=== PATIENT | male | born 1940 | race Caucasian/White ===

== ENCOUNTER 2019-11-02 08:17 | Outpatient (CLI) | payer MEDICARE | END 2019-11-02 23:59 | disposition home or self-care (01) | LOC: CFH 08:17 | PROVIDERS: ATTEND Nurse Practitioner | DX: Z12.2 Encounter for screening for malignant neoplasm of respiratory organs (principal); F17.210 Nicotine dependence, cigarettes, uncomplicated; I25.10 Atherosclerotic heart disease of native coronary artery without angina pectoris | CPT/HCPCS: G0297 ==

== ENCOUNTER → 2020-09-27 | Outpatient (CLI) | payer MEDICARE ==
[~2020-09-27] MED LIST: OMNIPAQUE 350 MG/ML, 100ML BOTTLE ONE
== END | disposition home or self-care (01) ==
LOC: RAD 13:50
PROVIDERS: ATTEND Internal Medicine Gastroenterology
DX: C16.9 Malignant neoplasm of stomach, unspecified (principal); I71.9 Aortic aneurysm of unspecified site, without rupture; D53.9 Nutritional anemia, unspecified; N28.1 Cyst of kidney, acquired; D37.1 Neoplasm of uncertain behavior of stomach; K92.2 Gastrointestinal hemorrhage, unspecified; R85.89 Other abnormal findings in specimens from digestive organs and abdominal cavity; K31.89 Other diseases of stomach and duodenum; K20.80 Other esophagitis without bleeding; K63.5 Polyp of colon; K31.7 Polyp of stomach and duodenum; K76.89 Other specified diseases of liver; K76.0 Fatty (change of) liver, not elsewhere classified; Z90.49 Acquired absence of other specified parts of digestive tract
CPT/HCPCS: 74177; Q9967

== ENCOUNTER 2020-10-17 06:03 | Day surgery (SDC) | payer MEDICARE ==
[~2020-10-17] VITALS: Ht 180.3 cm; Wt 78.1 kg
[2020-10-17 06:42] VITALS: BP 131/73
[2020-10-17] MEDS ORDERED: AMLO-210 PO (06:50)
[2020-10-17] MEDS ORDERED: HYDR12.517 PO (06:50)
[2020-10-17] MEDS ORDERED: PRAV40TA2 PO (06:50)
[2020-10-17] MEDS ORDERED: PANT40TA6 PO (06:50)
[2020-10-17] MEDS ORDERED: FAMO40TA4 PO (06:50)
[2020-10-17] MEDS ORDERED: CHLORHEXIDINE 15 ML UDC PO ONE (07:00)
[2020-10-17] MEDS ORDERED: LACTATED RINGERS 1,000 ML IV SCH (07:00)
[2020-10-17 07:35] LABS: ALBUMIN 3.6 g/dL (3.4-5.0); ANION GAP 5 mmol/L (5-15); CALCIUM 8.5 mg/dL (8.5-10.1); CHLORIDE 111 mmol/L (98-107)
[2020-10-17 07:39] LABS: ALANINE AMINOTRANSFERASE 18 U/L (12-78); ALKALINE PHOSPHATASE 74 U/L (45-117); BILIRUBIN,TOTAL 0.4 mg/dL (0.2-1.0); CREATININE 1.28 mg/dL (0.7-1.3); TOTAL PROTEIN 6.8 g/dL (6.4-8.2)
[2020-10-17] MEDS ORDERED: PROPOFOL 10 MG/ML, 20ML ONE (07:49)
[2020-10-17] MEDS ORDERED: PROPOFOL 50 ML ONE (07:49)
[2020-10-17] MEDS ORDERED: ONDANSETRON 2MG/ML, 2ML IVPush PRN (08:30)
[2020-10-17] MEDS ORDERED: PROMETHAZINE 25 MG/ML, 1ML IVPush PRN (08:30)
[2020-10-17] MEDS ORDERED: DIPHENHYDRAMINE 50 MG/ML, 1ML IVPush PRN (08:30)
[2020-10-17] MEDS ORDERED: hydrALAzine 20 MG/ML, 1ML IV PRN (08:30)
[2020-10-17] MEDS ORDERED: FENTANYL PF 100 MCG/2ML IV PRN (08:30)
[2020-10-17] MEDS ORDERED: LABETALOL 5MG/ML, 20ML IV PRN (08:30)
[2020-10-17] MEDS ORDERED: EPHEDRINE 50 MG/ML, 1ML IM PRN (08:30)
[2020-10-17] MEDS ORDERED: morphine SULFATE 10 MG/ML, 1ML IVPush PRN (08:30)
[2020-10-17] MEDS ORDERED: EPHEDRINE 50 MG/ML, 1ML IVPush PRN (08:30)
[2020-10-17] MEDS ORDERED: DIAZEPAM 5 MG/ML, 2ML IVPush PRN (08:30)
== END 2020-10-17 09:45 | disposition home or self-care (01) ==
LOC: OUT 06:03
PROVIDERS: ATTEND Internal Medicine Gastroenterology
DX: C16.2 Malignant neoplasm of body of stomach (principal); K29.50 Unspecified chronic gastritis without bleeding; I10 Essential (primary) hypertension; E78.5 Hyperlipidemia, unspecified; F17.210 Nicotine dependence, cigarettes, uncomplicated; Z20.822 Contact with and (suspected) exposure to COVID-19; Z79.899 Other long term (current) drug therapy; Z86.010 Personal history of colon polyps; Z90.49 Acquired absence of other specified parts of digestive tract
CPT/HCPCS: 36415; 43239; 43259; 80053; 87635; 88305; 88342; 93005; J2704; J7120

== ENCOUNTER 2021-01-21 07:25 | Day surgery (SDC) | payer MEDICARE ==
[~2021-01-21] VITALS: Ht 179.1 cm; Wt 74.8 kg
[~2021-01-21 07:25] MED LIST changes: +AMLO-210 PO; +FAMO40TA4 PO; +HYDR-2214 PO; +HYDR12.517 PO; +MULT-658 PO; -OMNIPAQUE 350 MG/ML, 100ML BOTTLE ONE; +PANT40TA6 PO; +PRAV40TA2 PO
[2021-01-21] MEDS ORDERED: FAMOTIDINE PO (08:07)
[2021-01-21 08:10] VITALS: BP 128/75
[2021-01-21] MEDS ORDERED: SODIUM CHLORIDE 0.9% 1,000 ML IV SCH (08:30)
[2021-01-21] MEDS ORDERED: CEFAZOLIN PMX 1GM/50ML 50 ML IV ONE (08:30)
[2021-01-21] MEDS ORDERED: LIDOCAINE 1%, 20ML ONE (09:01)
[2021-01-21] MEDS ORDERED: FENTANYL PF 100 MCG/2ML ONE (09:17)
[2021-01-21] MEDS ORDERED: NALOXONE 1 MG/ML, 2ML ONE (09:17)
[2021-01-21] MEDS ORDERED: MIDAZOLAM 1 MG/ML, 5ML ONE (09:17)
[2021-01-21] MEDS ORDERED: FLUMAZENIL 0.1 MG/1 ML, 5ML ONE (09:17)
== END 2021-01-21 11:30 | disposition home or self-care (01) ==
LOC: RAD 07:25
PROVIDERS: ATTEND Internal Medicine Hematology & Oncology
DX: C16.8 Malignant neoplasm of overlapping sites of stomach (principal); I10 Essential (primary) hypertension; F17.210 Nicotine dependence, cigarettes, uncomplicated; Z79.899 Other long term (current) drug therapy
CPT/HCPCS: 36561; 76937; 77001; 99156; 99157; C1788; J0690; J1642; J2250; J3010; J7030; J2310